=== PATIENT | male | born 1975 ===

== ENCOUNTER → 2018-03-22 | Outpatient (CLI) | payer OTHER ==
[2018-03-26 01:07] LABS: CHLAMYDIA TRACHOMATIS, NAA Negative (Negative); NEISSERIA GONORRHOEAE, NAA Negative (Negative)
== END ==
LOC: LAB SHORT 12:15 → LAB UCHC 12:15
PROVIDERS: Family Medicine
DX: N41.9 Inflammatory disease of prostate, unspecified (principal)
CPT/HCPCS: 87491; 87591

== ENCOUNTER → 2021-05-05 | Outpatient (CLI) | payer OTHER ==
[2021-05-06 08:10] LABS: HCV ANTIBODY <0.1 (0.0-0.9)
[2021-05-07 04:10] LABS: CHLAMYDIA TRACHOMATIS, NAA Negative (Negative)
[2021-05-07 09:11] LABS: HIV AB/P24 AG SCREEN Non Reactive (Non Reactive)
== END ==
LOC: LAB SHORT 13:35
PROVIDERS: Registered Nurse Community Health
DX: Z11.59 Encounter for screening for other viral diseases (principal)
CPT/HCPCS: 86317; 86592; 86803; 87389; 87491; 87591

== ENCOUNTER 2023-04-09 07:28 | Day surgery (SDC) | payer OTHER ==
[2023-04-09] VITALS (19 sets, daily range): BP systolic 84–129; BP diastolic 51–79
--- NOTE | 2023-04-09 08:29 | NUR ---
[facility] PRE-PROCEDURE NOTE PT A&OX4, BREATHING RA, NO COMPLAINTS. Ambulatory in Day Surgery Patient confirms NPO status and agrees with scheduled surgery. Pre-Op teaching done. Pt verbalizes understanding. Patient States Post-Procedure ride home has been arranged.
--- NOTE | 2023-04-09 08:51 | NUR ---
04/09/23 0851 Vladimir Sawyer HISTORY, CHART, MEDICATIONS AND ALLERGIES REVIEWED BEFORE START OF PROCEDURE. PATIENT CONFIRMS NPO STATUS AND AGREES WITH SCHEDULED PROCEDURE. 3-LEAD EKG REVIEWED WITH PHYSICIAN PRIOR TO START OF PROCEDURE. MONITOR INTACT WITH CONTINUOUS PULSE OXIMETRY,CAPNOGRAPHY, 3-LEAD EKG, INTERMITTENT BP. SUPPLEMENTAL O2 TO BE TITRATED THROUGHOUT PROCEDURE TO MAINTAIN O2 SATURATION ABOVE 90%. PATIENT DETERMINED TO BE ASA APPROPRIATE FOR PROPOFOL SEDATION PRIOR TO START OF PROCEDURE BY DR. CACERES.
--- NOTE | 2023-04-09 09:57 | NUR ---
[facility] DISCHARGE NOTE PT A&OX4, BREATHING RA, NO COMPLAINTS. PT TOLERATING PO FLUIDS. ABDOMEN IS SOFT AND NON-TENDER. PT ABLE TO DRESS SELF INDEPENDENTLY C RN AT BEDSIDE. VSS. Discharge instructions reviewed with patient. Patient verbalizes understanding. Copy given to patient to take home. Discharged via wheelchair to private car for ride home.
== END 2023-04-09 09:55 | disposition home or self-care (01) ==
LOC: ORSCMMR 07:28 → ORD 08:30 → ORSCMMR 09:55
PROVIDERS: Internal Medicine Gastroenterology
PROC: 0DBN8ZX Excision of Sigmoid Colon, Via Natural or Artificial Opening Endoscopic, Diagnostic (ICD-10-PCS; principal; 2023-04-09 08:30)
PROC: 0DBM8ZX Excision of Descending Colon, Via Natural or Artificial Opening Endoscopic, Diagnostic (ICD-10-PCS; principal; 2023-04-09 08:30)
DX: Z12.11 Encounter for screening for malignant neoplasm of colon (principal); D12.5 Benign neoplasm of sigmoid colon; K63.5 Polyp of colon; J44.9 Chronic obstructive pulmonary disease, unspecified; F17.210 Nicotine dependence, cigarettes, uncomplicated
CPT/HCPCS: 88305; J2250; J2704; J3010; J7120